=== PATIENT | female | born 1980 | race African-American/Black ===

== ENCOUNTER 2016-07-12 12:58 | Emergency (ER) | payer OTHER ==
[~2016-07-12] VITALS: Ht 170.2 cm; Wt 144.7 kg
[2016-07-12 13:09] VITALS: BP 154/76
[2016-07-12 13:37] LABS: BILIRUBIN,URINE NEGATIVE (NEG); GLUCOSE,URINE NEGATIVE (NEG); NITRITE,URINE NEGATIVE (NEG); PH,URINE 7.5; PROTEIN,URINE NEGATIVE (NEG-TRACE); UROBILINOGEN,URINE 0.2 mg/dL (0.2 mg/dL)
[2016-07-12 13:55] LABS: BACTERIA,URINE 0 /HPF (0-FEW); RBC,URINE OCC /HPF (0-2); SQUAMOUS EPITHELIAL CELL,UR FEW /LPF; WBC,URINE OCC /HPF (0-4)
[2016-07-12] MEDS ORDERED: HYDROCODONE/APAP 5/325MG TABLET. PO ONE (15:00)
--- NOTE | 2016-07-12 15:09 | PHYS DOC ---
Past Medical History Past Medical History: Hypertension Past Surgical History: Cholecystectomy, , Other Additional Past Surgical Histo: LEEP Additional Information: 0.5 PPD Alcohol Use: None Drug Use: None Adult General Chief Complaint Chief Complaint: LOWER BACK PAIN OR INJURY [facility] HPI Patient is a 36 year old female who presents with low back pain and lower abdominal pain for 2 weeks. The low back pain radiates down both legs. She has also had dysuria with urinary frequency and urgency, and vaginal discharge. She usually has regular menstrual cycles, but had 2 last month. She denies nausea, vomiting, diarrhea, constipation, fevers, or hematuria. She has had a tubal ligation. She uses condoms during intercourse, but the condom recently broke. She does express some concern for STDs today. She does not have a PCP. Review of Systems Review of Systems Constitutional: Denies fever or chills. [] Eyes: Denies change in visual acuity, redness, or eye pain. [] HENT: Denies ear pain, nasal congestion or sore throat. [] Respiratory: Denies cough or shortness of breath. [] Cardiovascular: Denies chest pain, palpitations or edema. [] GI: Denies nausea, vomiting, bloody stools or diarrhea. Reports lower abdominal pain. : Denies hematuria. Reports dysuria, urinary frequency and urgency, and vaginal discharge. Musculoskeletal: Denies joint pain. Reports low back pain. Integument: Denies rash or skin lesions. [] Neurologic: Denies headache, focal weakness or sensory changes. Denies incontinence or saddle anesthesia. All systems reviewed and negative unless otherwise stated in the HPI. Current Medications Current Medications Current Medications Medications (Trade) Dose Ordered Sig/[facility] Start Time Stop Time Status Last Admin Dose Admin Acetaminophen/ Hydrocodone Bitart (Lortab 5/325) 1 tab 1X ONCE 07/12/16 15:00 07/12/16 15:01 DC 07/12/16 15:10 1 TAB Allergies Allergies Allergies Coded Allergies Type Severity Reaction Last Updated Verified No Known Drug Allergies 07/12/16 No Physical Exam Physical Exam Constitutional: Well developed, well nourished, no acute distress, non-toxic appearance. Morbidly obese female. HENT: Normocephalic, atraumatic, oropharynx moist. [] Eyes: PERRLA, EOMI, conjunctiva normal, no discharge. [] Neck: Normal range of motion, no tenderness, supple, no stridor. [] Cardiovascular: Heart rate regular rhythm, no murmur. [] Lungs & Thorax: Bilateral breath sounds clear to auscultation without wheezes, rales, or rhonchi. [] Abdomen: Bowel sounds normal, soft, suprapubic tenderness, no masses, no pulsatile masses. [] Female : ED RN present during exam. Normal external genitalia. There is mild vaginal discharge and brown blood. There is no active bleeding. There is no cervicitis or CMT. There is diffuse tenderness on bimanual examination. Skin: Warm, dry, no erythema, no rash. [] Back: Lumbar midline tenderness, no CVA tenderness. [] Extremities: No tenderness, ROM intact, no edema. Distal pulses equal bilaterally. [] Neurologic: Alert and oriented X 3, normal motor function, normal sensory function, no focal deficits noted. [] Psychologic: Affect normal, judgement normal, mood normal. [] Current Patient Data Vital Signs Vital Signs Date Time Temp Pulse Resp B/P Pulse Ox O2 Delivery O2 Flow Rate FiO2 07/12/16 15:10 18 98 Room Air 07/12/16 13:09 97.5 96 154/76 97.5 Lab Values Laboratory Tests Test 07/12/16 13:10 Urine Collection Type Unknown Urine Color Yellow Urine Clarity Clear Urine pH 7.5 Urine Specific [place] 1.020 Urine Protein Negativemg/dL (NEG-TRACE) Urine Glucose (UA) Negativemg/dL (NEG) Urine Ketones (Stick) Negativemg/dL (NEG) Urine Blood Negative (NEG) Urine Nitrite Negative (NEG) Urine Bilirubin Negative (NEG) Urine Urobilinogen Dipstick 0.2mg/dL (0.2 mg/dL) Urine Leukocyte Esterase Negative (NEG) Urine RBC Occ/HPF (0-2) Urine WBC Occ/HPF (0-4) Urine Squamous Epithelial Cells Few/LPF Urine Bacteria 0/HPF (0-FEW) Microbiology 07/12/16 Wet Prep - Final, Complete WET PREP Final YEAST NONE SEEN TRICHOMONAS NONE SEEN CLUE CELLS CLUE CELLS PRESENT ALTERED KATRIN ALTERED KATRIN PRESENT SUGGESTIVE OF BACTERIAL VAGINOSIS WBCS OCCASIONAL RBCS OCCASIONAL SQUAMOUS EPS MODERATE EKG EKG [] Radiology/Procedures Radiology/Procedures [] Course & Med Decision Making Course & Med Decision Making Pertinent Labs and Imaging studies reviewed. (See chart for details) [] Dragon Disclaimer Dragon Disclaimer This electronic medical record was generated, in whole or in part, using a voice recognition dictation system. Departure Departure Impression: Primary Impression: Bacterial vaginosis Additional Impression: Low back pain Disposition: 01 HOME, SELF-CARE Condition: STABLE Referrals: NON,STAFF (PCP) Patient Instructions: Back Pain, Adult, [id number], Bacterial Vaginosis, Easy -to-Read Additional Instructions: Your urine does not show an infection. Your pelvic exam was positive for bacterial vaginosis. Please complete all of the prescribed antibiotic. You were treated for gonorrhea and chlamydia in the emergency department today. We will not have your results back for 2-3 days. You will receive a phone call if your test result is positive. Please do not have sex for 1 week to be sure that the treatment is complete. Please take the prescribed pain medications as directed. Do not drive or operate heavy machinery while taking pain medication or muscle relaxers. Please follow up with a primary care provider within the next week. Return to the emergency department if you have any new or concerning symptoms. Scripts Methocarbamol (Robaxin)500 Mg [id number] Mg PO QID #20 TAB Prov:MARIO WARE 07/12/16 Hydrocodone/Apap 5-325 (Centre 5-325 Tablet)1 Each Tablet1 Tab PO PRN Q6HRS PRN PAIN #20 TAB Prov:MARIO WARE 07/12/16 Metronidazole (Flagyl)500 Mg Tablet1 Tab PO BID #14 TAB Prov:MARIO WARE 07/12/16 Problem Qualifiers Additional Impression: Low back pain Chronicity: acute Back pain laterality: midline Sciatica presence: with sciatica Sciatica laterality: bilateral sciatica Qualified Code: M54.42 - Lumbago with sciatica, left side MARIO WARE Jul 12, 2016 15:09
[2016-07-12] MEDS ORDERED: CEFTRIAXONE IM 250 MG VIAL. IM ONE (15:30)
[2016-07-12] MEDS ORDERED: AZITHROMYCIN 250 MG TABLET PO ONE (15:30)
[2016-07-12] MEDS ORDERED: METH-37 PO (15:36)
[2016-07-12] MEDS ORDERED: HYDR-971 PO (15:36)
[2016-07-12] MEDS ORDERED: METR500T PO (15:36)
== END 2016-07-12 15:55 | disposition home or self-care (01) ==
LOC: ER 12:58
DX: N76.0 Acute vaginitis (principal); M54.42 Lumbago with sciatica, left side; I10 Essential (primary) hypertension; Z90.49 Acquired absence of other specified parts of digestive tract
CPT/HCPCS: 81001; 81025; 87491; 87591; 96372; 99284; J0696; Q0111; Q0144